=== PATIENT | male | born 1950 | race Caucasian/White ===

== ENCOUNTER 2019-08-20 01:24 | Day surgery (SDC) | payer BC, SELFPAY ==
[2019-08-17 13:59] VITALS: BMI 34.6
[2019-08-20 06:42] VITALS: BP 125/77; PULSE 96; RESP 20; TEMP 37; O2SAT 98
[2019-08-20] MEDS: LACTATED RINGERS 1,000 ML 150 ML IV CONT (06:59)
--- NOTE | 2019-08-20 07:01 | WPDANESEPPF ---
Anes - Initial Pre Proc Eval Procedure: Operation Date: 08/20/19 07:30 Proposed Procedures p Esophagogastroduodenoscopy & Colonoscopy - Gigi Sylvester DO Date/Time: 08/20/19 07:01 Surgeon: Gigi Sylvester DO Pre Op Diagnosis: Dysphagia, GERD Patient Data Age: 69 Gender: M Height: 6 ft Weight: 116 kg Last Vital Signs Temp 37.0 C 08/20/19 06:42 Pulse 96 08/20/19 06:42 Resp 20 08/20/19 06:42 BP 125/77 08/20/19 06:42 Pulse Ox 98 08/20/19 06:42 Allergies Allergy/AdvReac Type Severity Reaction Status Date / Time No Known Allergies Allergy Mild Verified 08/17/19 13:58 Home Medications Medication Instructions Recorded Confirmed Type atorvastatin 20 mg PO DAILY 08/17/19 08/20/19 History candesartan 16 mg PO DAILY 08/17/19 08/20/19 History carvedilol 25 mg PO DAILY 08/17/19 08/20/19 History glimepiride 2 mg PO DAILY 08/17/19 08/20/19 History insulin glargine [Basaglar KwikPen 120 unit SUBCUT QACLUNCH 08/17/19 08/20/19 History U-100 Insulin] sitagliptin [Januvia] 100 mg PO DAILY 08/17/19 08/20/19 History Patient hx anesthesia problems: none Family hx anesthesia problems: none PMFSH Past Medical History Medical History (Updated 08/20/19 @ 07:02 by Eliseo Sorto MD) CAD (coronary artery disease) Diabetes HTN (hypertension) Hyperlipidemia AARON (obstructive sleep apnea) Anes - Eval Final PreProcedure Day of Procedure 08/20/19 07:01 Patient weight: obese Heart: regular rate and rhythm Lungs: clear to auscultation Airway: Mallampati scale class II Neurological: alert and oriented Last oral intake: >/= 8 hours ASA classification: III Emergent: no Anesthetic plan: proceed Anesthesia type and monitoring: general GIVS and standard monitoring Informed Consent: The patient's anesthetic plan and its attendant risks and benefits were discussed with the patient/family/POA. Questions were solicited and answers provided to the satisfaction of the patient/family/POA.
[2019-08-20 07:09] LABS: Glucose Point of Care 188 (65-105)
--- NOTE | 2019-08-20 07:33 | PM.IMHP ---
H&P: HPI History of Present Illness Chief complaint: Dysphagia, GERD Narrative: Jerry Stephenson Jr. is a 69 year old male presents today for EGD and Colonoscopy. Last colonoscopy was in 2013 and he reports hx of polyps and hemorrhoids. Family hx of colon cancer in his borther diagnosed at the age of 44. He does report alternating bowel habits between constipation and diarrhea and takes metamucil daily. He denies any melena, hematochezia, abdominal pain and rectal pain. He does report dysphagia mid chest to solids and liquids and choking on food. He was having alot of GERD but this has somewhat improved after he stopped using cough drops. He denies abnormal weight loss, fever and chills. Review of Systems Review of Systems: All systems reviewed & are unremarkable except as noted in HPI and below PMFSH Past Medical History Medical History (Updated 08/20/19 @ 07:39 by Mariana Camara, HEALTH AND SAFETY TECHNICIAN) CAD (coronary artery disease) Diabetes HTN (hypertension) Hx of adenomatous colonic polyps Hyperlipidemia AARON (obstructive sleep apnea) Surgical History Surgical History (Updated 08/20/19 @ 07:41 by Mariana Camara, HEALTH AND SAFETY TECHNICIAN) Hx of cardiac catheterization Hx of cataract removal with insertion of prosthetic lens Hx of cholecystectomy Family History Family History (Updated 08/20/19 @ 07:42 by Mariana Camara, HEALTH AND SAFETY TECHNICIAN) Sibling Carcinoma of colon Social History Social History (Updated 08/20/19 @ 07:42 by Mariana Camara, HEALTH AND SAFETY TECHNICIAN) Smoking status: Former smoker Tobacco type: pipe Alcohol intake: current Alcohol use details: 2 drinks per month Meds Home Medications and Allergies Home Medications Medication Instructions Recorded Confirmed Type atorvastatin 20 mg PO DAILY 08/17/19 08/20/19 History candesartan 16 mg PO DAILY 08/17/19 08/20/19 History carvedilol 25 mg PO DAILY 08/17/19 08/20/19 History glimepiride 2 mg PO DAILY 08/17/19 08/20/19 History insulin glargine [Basaglar KwikPen 120 unit SUBCUT QACLUNCH 08/17/19 08/20/19 History U-100 Insulin] sitagliptin [Januvia] 100 mg PO DAILY 08/17/19 08/20/19 History Allergies Allergy/AdvReac Type Severity Reaction Status Date / Time No Known Allergies Allergy Mild Verified 08/17/19 13:58 Vital Signs Vital Signs - 24 hr 08/20/19 06:42 Temperature 37.0 C Pulse Rate 96 Respiratory Rate 20 Blood Pressure 125/77 Pulse Oximetry 98 Exam Const: General: cooperative, healthy appearing, comfortable, alert and awake Nutritional Appearance: average body habitus Orientation/consciousness: oriented to person, oriented to place, oriented to time and patient oriented x3 Limitations: no limitations HENMT: Head: normal to inspection and normocephalic Mouth: Yes Normal oral and palatal mucosa present and Yes moist mucous membranes Neck: Neck: normal visual inspection, supple and no JVD Carotids: no bruits Resp: Effort & Inspection: normal respiratory effort and no respiratory distress Auscultation: clear to auscultation bilaterally Cardio: Rate: regular rate Rhythm: regular rhythm Heart sounds: S1 normal heart sound present, S2 normal heart sound present, no gallops, no murmurs and no rubs GI: Inspection: normal to inspection and obesity GI Palp: No abdominal tenderness and No No hepatosplenomegaly present Percussion: Yes normal to percussion Auscultation: normal bowel sounds Rectal Exam: deferred Skin: General skin exam: normal color Lesions: no lesions Rashes: no rashes Neuro: General: oriented to person, oriented to place, oriented to time, patient oriented x3 and moves all extremities Cognition (Neuro): normal cognition Speech: normal speech Gait exam (Neuro): Normal gait present Extrem: General: normal to inspection Psych: Appearance: grossly normal Mental Status: mental status grossly normal Speech and movement: Normal speech and movement present Affect: normal affect Attitude: cooperative Thought process: Normal thought process present
[2019-08-20 08:21] VITALS: BP 91/57; PULSE 80; RESP 22; O2SAT 96
[2019-08-20 08:31] VITALS: BP 101/60; PULSE 82; RESP 19; O2SAT 98
[2019-08-20 08:41] VITALS: BP 117/70; PULSE 83; RESP 19; O2SAT 98
[2019-08-20 08:42] LABS: Glucose Point of Care 191 (65-105)
== END 2019-08-20 09:00 | disposition home or self-care (01) ==
PROVIDERS: PCP Family Medicine Adolescent Medicine; Visit Provider Internal Medicine Gastroenterology
PROC: 0DJ08ZZ Inspection of Upper Intestinal Tract, Via Natural or Artificial Opening Endoscopic (ICD-10-PCS; CPT 43235; principal; 2019-08-20 07:30)
DX: R13.10 Dysphagia, unspecified (principal); K21.0 Gastro-esophageal reflux disease with esophagitis; K29.70 Gastritis, unspecified, without bleeding; R07.89 Other chest pain; Z12.11 Encounter for screening for malignant neoplasm of colon; D12.3 Benign neoplasm of transverse colon; D12.0 Benign neoplasm of cecum; D12.2 Benign neoplasm of ascending colon; D12.4 Benign neoplasm of descending colon; K64.8 Other hemorrhoids; Z80.0 Family history of malignant neoplasm of digestive organs; I10 Essential (primary) hypertension; I25.10 Atherosclerotic heart disease of native coronary artery without angina pectoris; E11.9 Type 2 diabetes mellitus without complications; E78.5 Hyperlipidemia, unspecified; G47.33 Obstructive sleep apnea (adult) (pediatric); Z87.891 Personal history of nicotine dependence; Z79.4 Long term (current) use of insulin; Z79.84 Long term (current) use of oral hypoglycemic drugs; E66.9 Obesity, unspecified; Z68.34 Body mass index [BMI] 34.0-34.9, adult
CPT/HCPCS: 45385; 43239; 43450; 87081; 88305; 88313; J2704; J7120

== ENCOUNTER → 2022-08-21 14:22 | Outpatient (CLI) | payer BC, SELFPAY ==
--- NOTE | ~2022-08-21 | XR_ITS ---
EXAM: XR foot LT 2V DATE: 08/21/2022 14:37 HISTORY: possible glass in sole of left foot . COMPARISON: None available. FINDINGS: Mildly decreased mineralization. No fracture or dislocation. No lytic or blastic lesion. M ild scattered degenerative change. No erosion or periosteal change. Vascular calcifications. IMPRESSION: No acute osseous abnormality in the left foot. No radiopaque foreign body detected. Reviewed, dictated and finalized at location K. R TESTER IMPRESSION: No acute osseous abnormality in the left foot. No radiopaque foreig n body detected.
== END ==
PROVIDERS: PCP Family Medicine Adolescent Medicine; Visit Provider Family Medicine Adolescent Medicine
DX: M79.672 Pain in left foot (principal)
CPT/HCPCS: 73620

== ENCOUNTER 2024-01-14 12:11 | Outpatient (CLI) | payer BC, SELFPAY ==
--- NOTE | ~2024-01-14 | XR_ITS ---
XR lumbar spine min 4V 01/14/2024 12:40 Indication: Lumbar spondylosis. Procedure: 6 views lumbar spine Comparison: No prior studies for comparison. Findings: Mild levocurvature of the lumbar spine. There is disc narrowing at L4-5 and L5-S1. There is advanced facet hypertrophy at these levels with grade 1 degenerative spondylolisthesis. There is mod erate degenerative disc disease at at T12-L1. Sacral foramen are symmetric. Impression: 1: Severe lumbar spondylosis. Reviewed, dictated and finalized at location B. Impression: 1: Severe lumbar spondylosis.
== END 2024-01-14 12:12 ==
LOC: MICIMG 12:13
PROVIDERS: PCP Family Medicine Adolescent Medicine; Visit Provider Chiropractor
DX: M47.896 Other spondylosis, lumbar region (principal); M51.36 Other intervertebral disc degeneration, lumbar region
CPT/HCPCS: 72110